=== PATIENT | female | born 1955 | race Two or more races ===

== ENCOUNTER → 2016-11-02 | Outpatient (CLI) | payer OTHER ==
[2015-04-08 11:41] VITALS: BP 106/55
[~2016-11-02] MED LIST: ALEN70TA5 PO; ALPR0.25 PO; ASPI-482 PO; METO25TA4 PO; SERT50TA PO; SIMV40TA3 PO
--- NOTE | 2016-11-02 14:06 | RAD ---
DATE: 11/02/2016 EXAM: DIGITAL SCREEN BILAT W/CAD HISTORY: 60-year-old female for routine screening. COMPARISON: 2016 and 2014 mammogram This study was interpreted with the benefit of Computerized Aided Detection (CAD). FINDINGS: Breast Density: HETERO The breast parenchyma Is heterogeneiously dense, which could reduce sensitivity of mammography. Breast parenchyma level C. Benign calcifications in bilateral breasts. No suspicious calcifications, spiculated masses or architectural distortion. IMPRESSION: No mammographic evidence of malignancy. BI-RADS CATEGORY: 2 BENIGN FINDING(S) RECOMMENDED FOLLOW-UP: 12M 12 MONTH FOLLOW-UP PQRS compliance statement: Patient information was entered into a reminder system with a target due date 11/02/2017 for the next mammogram. Mammography is a sensitive method for finding small breast cancers, but it does not detect them all and is not a substitute for careful clinical examination. A negative mammogram does not negate a clinically suspicious finding and should not result in delay in biopsying a clinically suspicious abnormality. "Our facility is accredited by the [employer] Mammography Program."
== END | disposition home or self-care (01) ==
LOC: MAMMO 08:23
PROVIDERS: ATTEND Internal Medicine
DX: Z12.31 Encounter for screening mammogram for malignant neoplasm of breast (principal)
CPT/HCPCS: G0202; 77067

== ENCOUNTER → 2017-10-18 | Outpatient (CLI) | payer BC ==
[2015-04-08 11:41] VITALS: BP 106/55
[~2017-10-18] MED LIST changes: +ATOR10TA60 PO; +CHOL10003 PO; +FLEC100T PO; +GABA-585 PO
[2017-10-18 12:43] LABS: BASO % 0 % (0-3); EOS # 0.1 x10^3/uL (0.0-0.7); EOS % 2 % (0-3); HEMATOCRIT 43.2 % (36.0-47.0); HEMOGLOBIN 14.5 g/dL (12.0-15.5); LYMPH # 1.9 x10^3/uL (1.0-4.8); LYMPH % 34 % (24-48); MEAN CORPUSCULAR HEMOGLOBIN 32 pg (25-35); MEAN CORPUSCULAR HGB CONC 34 g/dL (31-37); MEAN CORPUSCULAR VOLUME 94 fL (79-100); MONO # 0.6 x10^3/uL (0.0-1.1); MONO % 10 % (0-9); NEUT % 54 % (31-73); PLATELET COUNT 243 x10^3/uL (140-400); RED BLOOD COUNT 4.59 x10^6/uL (3.50-5.40); RED CELL DISTRIBUTION WIDTH 13.7 % (11.5-14.5); WHITE BLOOD COUNT 5.6 x10^3/uL (4.0-11.0)
[2017-10-18 12:55] LABS: BARBITURATES NEG (NEG); BENZODIAZEPINES NEG (NEG); CANNABINOIDS NEG (NEG); COCAINE NEG (NEG); METHADONE NEG (NEG); OPIATES NEG (NEG); PHENCYCLIDINE NEG (NEG)
[2017-10-18 13:03] LABS: AMPHETAMINE/METHAMPHETAMINE NEG (NEG)
[2017-10-18 13:16] LABS: ALBUMIN 4.1 g/dL (3.4-5.0); ALBUMIN/GLOBULIN RATIO 1.2 (1.0-1.7); CALCIUM 9.5 mg/dL (8.5-10.1); CREATININE 0.6 mg/dL (0.6-1.0); GFR 101.6; POTASSIUM 3.7 mmol/L (3.5-5.1); TOTAL BILIRUBIN 0.7 mg/dL (0.2-1.0); TOTAL PROTEIN 7.5 g/dL (6.4-8.2)
== END | disposition home or self-care (01) ==
LOC: LAB 12:22
PROVIDERS: ATTEND Psychiatry & Neurology Neurology
DX: R51 Headache (principal); E78.00 Pure hypercholesterolemia, unspecified; Z87.891 Personal history of nicotine dependence; Z79.899 Other long term (current) drug therapy
CPT/HCPCS: 36415; 80053; 80307; 82607; 84443; 85025; 85651; 86141; G0479

== ENCOUNTER → 2017-10-25 | Outpatient (CLI) | payer BC ==
[2015-04-08 11:41] VITALS: BP 106/55
[~2017-10-25] MED LIST changes: +GADOBUTROL 7.5 MMOL/7.5 ML VIAL IV ONE
--- NOTE | 2017-10-25 13:26 | RAD ---
MRI of the Brain without and with Contrast October 25, 2017 Clinical History: Headaches with sharp pain behind left eye since early August of this year. Technique: Unenhanced T1-weighted sagittal and axial and FLAIR, T2-weighted, gradient echo and diffusion-weighted axial images of the brain were obtained. Additionally thin section T1-weighted axial and coronal and T2-weighted axial images through the brainstem to include the proximal trigeminal nerves were obtained. After the intravenous administration of 7.5 cc of Gadavist, enhanced T1-weighted axial and coronal images of the brain were obtained. Enhanced thin section T1-weighted axial and coronal images of the proximal trigeminal nerves were obtained. Findings: Comparison is made to the patient's CT scan dated 06/14/2013. The ventricles and sulci are within normal limits in size and configuration. No area of significant abnormal signal intensity is seen involving brain parenchyma. No extra-axial fluid collection is seen. There is no MRI evidence of acute ischemia/infarction. No abnormal area contrast enhancement is noted. The trigeminal nerves are symmetric bilaterally. No abnormal soft tissue mass or area of abnormal contrast enhancement is noted. Mild mucosal thickening in seen scattered throughout the paranasal sinuses. Normal flow voids are seen within the major vascular structures parenchyma. IMPRESSION: Negative study. Electronically signed by: Rubin Bray MD (10/25/2017 1:22 PM) [id number]
== END | disposition home or self-care (01) ==
LOC: MRI 10:26
PROVIDERS: ATTEND Psychiatry & Neurology Neurology
DX: J34.89 Other specified disorders of nose and nasal sinuses (principal); E78.00 Pure hypercholesterolemia, unspecified; E78.5 Hyperlipidemia, unspecified; I48.0 Paroxysmal atrial fibrillation; Z79.899 Other long term (current) drug therapy; Z87.891 Personal history of nicotine dependence; Z90.49 Acquired absence of other specified parts of digestive tract; Z90.710 Acquired absence of both cervix and uterus; Z82.49 Family history of ischemic heart disease and other diseases of the circulatory system
CPT/HCPCS: 70553; A9585

== ENCOUNTER → 2018-05-16 | Outpatient (CLI) | payer BC ==
[2015-04-08 11:41] VITALS: BP 106/55
[~2018-05-16] MED LIST changes: -ALEN70TA5 PO; +ALEN70TA6 PO; -GADOBUTROL 7.5 MMOL/7.5 ML VIAL IV ONE
--- NOTE | 2018-05-16 08:42 | RAD ---
Right upper quadrant abdominal ultrasound, 2018: HISTORY: Abnormal liver function test The gallbladder is surgically absent. The common hepatic duct measures 3 mm. No hepatic mass or intrahepatic bile duct dilatation is seen. The liver measures 16-17 cm in craniocaudad extent. The hepatic echogenicity is generally increased, most commonly due to fatty change. The visualized portions of the pancreas and right kidney are unremarkable. IMPRESSION: 1. Status post cholecystectomy. 2. Increased hepatic echogenicity suggesting fatty change. Electronically signed by: Ori Garcia MD (05/16/2018 8:38 AM) [facility]
== END | disposition home or self-care (01) ==
LOC: US 07:07
PROVIDERS: ATTEND Family Medicine
DX: R94.5 Abnormal results of liver function studies (principal); Z90.49 Acquired absence of other specified parts of digestive tract
CPT/HCPCS: 76705

== ENCOUNTER → 2021-05-16 | Outpatient (CLI) | payer MEDICARE ==
[2015-04-08 11:41] VITALS: BP 106/55
[~2021-05-16] MED LIST changes: -ALEN70TA6 PO; +ALEN70TA71 PO; +PERFLUTREN PROTEIN-A MICROSPHR 0.22 MG/ML 3 ML VIAL. IV ONE; +SIMV40TA18 PO; -SIMV40TA3 PO
--- NOTE | 2021-05-16 13:11 | CARD ---
MR#: [id number] Date of Study: 05/16/2021 Ordering Physician: SUHAS COOK, Referring Physician: SUHAS COOK, Tech: Jaz Hickman [facility] APPROVED REPORT EXAM: Two-dimensional and M-mode echocardiogram with Doppler and color Doppler. Other Information Quality : Technically LimitedHR: 66bpm Rhythm : NSR INDICATION Dyspnea Fatigue Atrial Fibrillation Echo Enhancing Agent Indication: Endocardial border delineation Agent/Amount Used: Optison 2mL RISK FACTORS Hyperlipidemia 2D DIMENSIONS RVDd3.7 (2.9-3.5cm)Left Atrium(2D)3.9 (1.6-4.0cm) IVSd1.2 (0.7-1.1cm)Aortic Root(2D)2.9 (2.0-3.7cm) LVDd5.7 (3.9-5.9cm)LVOT Diameter2.1 (1.8-2.4cm) PWd1.2 (0.7-1.1cm)LVDs3.4 (2.5-4.0cm) FS (%) 40.4 %SV111.2 ml LVEF(%)70.4 (>50%) Aortic Valve AoV Peak Michael.135.7cm/sAoV VTI30.5cm AO Peak GR.7.4mmHgLVOT Peak Michael.92.0cm/s AO Mean GR.3mmHgAVA (VMAX)2.33cm2 Mitral Valve MV E Oxwjzsqo32.5cm/sMV DECEL [id number] MV A Sxnjbzhp01.8cm/sE/A Ratio1.0 Pulmonary Valve PV Peak Qlwvhhnf449.2cm/s Tricuspid Valve TR P. Tzssruyw132wh/sTR Peak Gr.18mmHg LEFT VENTRICLE The Left Ventricle is mildly dilated. There is mild concentric left ventricular hypertrophy. The left ventricular systolic function is normal and the ejection fraction is within normal range. Estimated ejection fraction 60-65%. There is normal LV segmental wall motion. Transmitral Doppler flow pattern is Grade I-abnormal relaxation pattern. RIGHT VENTRICLE The right ventricle is normal size. There is normal right ventricular wall thickness. The right ventr icular systolic function is normal. ATRIA The left atrium size is normal. The right atrium size is normal. The interatrial septum is intact wit h no evidence for an atrial septal defect or patent foramen ovale as noted on 2-D or Doppler imaging. AORTIC VALVE The aortic valve is normal in structure and function. Doppler and Color Flow revealed mild aortic reg urgitation. There is no significant aortic valvular stenosis. MITRAL VALVE The mitral valve is normal in structure and function. There is no evidence of mitral valve prolapse. There is no mitral valve stenosis. Doppler and Color-flow revealed trace to mild mitral regurgitation . TRICUSPID VALVE The tricuspid valve is normal in structure and function. Doppler and Color Flow revealed trace tricus pid regurgitation. Estimated PAP 22 mmHg. There is no tricuspid valve stenosis. PULMONIC VALVE Doppler and Color Flow revealed no pulmonic valvular regurgitation. There is no pulmonic valvular dory nosis. GREAT VESSELS The aortic root is normal in size. The ascending aorta is normal in size. The IVC is normal in size a nd collapses >50% with inspiration. PERICARDIAL EFFUSION There is a small pericardial effusion without echocardiographic evidence of tamponade. Critical Notification Critical Value: No <Conclusion> The left ventricular systolic function is normal and the ejection fraction is within normal range. E stimated ejection fraction 60-65%. There is normal LV segmental wall motion. Doppler and Color Flow revealed mild aortic regurgitation. There is a small pericardial effusion without echocardiographic evidence of tamponade. Signed by : Zaheer Cash, Electronically Approved : 05/16/2021 13:11:21
== END ==
LOC: ECHO 07:46
PROVIDERS: ATTEND Internal Medicine Cardiovascular Disease
DX: I08.0 Rheumatic disorders of both mitral and aortic valves (principal); I48.91 Unspecified atrial fibrillation; R53.83 Other fatigue
CPT/HCPCS: C8929; Q9956